=== PATIENT | female | born 1995 ===

== ENCOUNTER 2018-02-17 18:21 | Emergency (ER) | payer OTHER ==
[~2018-02-17] VITALS: Ht 157.5 cm; Wt 94.8 kg
[~2018-02-17 18:21] MED LIST: PRENATAL TABLE1 EAC1 PO
== END 2018-02-17 22:46 | disposition home or self-care (01) ==
LOC: ER 18:21
DX: O26.892 Other specified pregnancy related conditions, second trimester (principal); R10.2 Pelvic and perineal pain; O23.42 Unspecified infection of urinary tract in pregnancy, second trimester; Z34.02 Encounter for supervision of normal first pregnancy, second trimester

== ENCOUNTER 2018-05-28 23:16 | Inpatient (IN) | payer OTHER ==
[~2018-05-28] VITALS: Ht 157.5 cm; Wt 99.3 kg
== END 2018-05-31 13:40 | DRG 775 ==
LOC: LDR 23:16 → OB/GYN 23:16
PROC: 4A1HXCZ Monitoring of Products of Conception, Cardiac Rate, External Approach (ICD-10-PCS; 2018-05-28)
PROC: 10E0XZZ Delivery of Products of Conception, External Approach (ICD-10-PCS; principal; 2018-05-29)
PROC: 4A033R1 Measurement of Arterial Saturation, Peripheral, Percutaneous Approach (ICD-10-PCS; 2018-05-29)
DX: O60.13X0 Preterm labor second trimester with preterm delivery third trimester, not applicable or unspecified (principal); Z3A.35 35 weeks gestation of pregnancy; Z37.0 Single live birth; Z22.330 Carrier of Group B streptococcus